=== PATIENT | female | born 1975 | race Caucasian/White ===

== ENCOUNTER 2023-08-05 01:19 | Emergency (ER) | payer OTHER ==
[~2023-08-05] VITALS: Ht 172.7 cm; Wt 61.2 kg
[~2023-08-05 01:19] MED LIST: ANTIBIOTIC O500 U/GM TP; LAMOTRIGINE150 MG PO; NAPROSYN500 MG PO; NORCO 325 MG-51 TAB PO; PARAFON FORTE500 MG PO; PROPRANOLOL HCL10 MG PO; RISPERIDONE3 MG PO
[2023-08-05] MEDS ORDERED: AMITRIPTYLINE100 M1 PO (01:42)
[2023-08-05] MEDS ORDERED: CREON DR 24,001 EACH PO (01:43)
[2023-08-05] MEDS ORDERED: NEURONTIN600 MG PO (01:43)
[2023-08-05] MEDS ORDERED: LAMICTAL100 MG PO (01:44)
[2023-08-05] MEDS ORDERED: ATORVASTATIN CA10 M1 PO (01:44)
[2023-08-05 01:55] LABS: HEMATOCRIT 33.5 % (37.0-47.0); MEAN CELL VOLUME 95.7 fl (81.0-99.0); MEAN CORPUSCULAR HGB CONC 31.3 g/dl (33.0-37.0); MEAN PLATELET VOLUME 8.5 fl (9.6-12.3); PLATELET COUNT AUTOMATED 378 10*3/uL (130-400); RED CELL DISTRI WIDTH 12.7 % (0-14.5); WHITE BLOOD COUNT 7.8 10*3/uL (4.8-10.8)
[2023-08-05 02:05] LABS: MANUAL DIFF REFLEX YES
[2023-08-05 02:14] LABS: ACT PARTIAL THROMBO TIME 46.4 SECONDS (20.0-32.1)
[2023-08-05 02:16] LABS: ALKALINE PHOSPHATASE 67 U/L (46-116); BUN 17 mg/dl (9-23); CHLORIDE 100 mmol/L (98-107); LIPASE 28 U/L (12-53); POTASSIUM 3.3 mmol/L (3.4-5.1); SGPT/ALT 30 U/L (5-49); TOTAL PROTEIN 7.3 gm/dL (6.0-8.0)
[2023-08-05 02:17] LABS: PLATELET SUFFICIENCY NORMAL (NORMAL); TOTAL CELLS COUNTED 100 #CELLS
[2023-08-05] MEDS ORDERED: PREDNISONE50 MG PO (04:12)
== END 2023-08-05 04:16 | disposition home or self-care (01) ==
LOC: ED 01:19
PROVIDERS: Internal Medicine
DX: J18.9 Pneumonia, unspecified organism (principal); R10.2 Pelvic and perineal pain; I10 Essential (primary) hypertension; F31.9 Bipolar disorder, unspecified; D64.9 Anemia, unspecified; Z88.5 Allergy status to narcotic agent; Z88.8 Allergy status to other drugs, medicaments and biological substances; Z87.891 Personal history of nicotine dependence